=== PATIENT | female | born 1940 | race Caucasian/White ===

== ENCOUNTER → 2018-06-16 | Outpatient (CLI) | payer MEDICARE | LOC: LAB 14:23 | PROVIDERS: ATTEND Ophthalmology Retina Specialist | DX: H53.10 Unspecified subjective visual disturbances (principal); H35.3211 Exudative age-related macular degeneration, right eye, with active choroidal neovascularization; H35.3222 Exudative age-related macular degeneration, left eye, with inactive choroidal neovascularization; H43.813 Vitreous degeneration, bilateral | CPT/HCPCS: 36415; 85652 ==